=== PATIENT | female | born 1965 | race Caucasian/White ===

== ENCOUNTER 2017-03-27 05:54 | Day surgery (SDC) | payer BC ==
[~2017-03-27 05:54] MED LIST: CYCL10TA2 PO; NAPR250T6 PO
[2017-03-27] MEDS ORDERED: METF500T4 PO (06:41)
[2017-03-27] MEDS ORDERED: LOSA100T6 PO (06:42)
[2017-03-27] MEDS ORDERED: METO100T5 PO (06:42)
[2017-03-27] MEDS ORDERED: DILT120C71 PO (06:43)
[2017-03-27] MEDS ORDERED: LIDOCAINE 1% PF 2 ML VIAL. ID PRN (07:00)
[2017-03-27] MEDS ORDERED: fentaNYL PF VIAL 100 MCG/2 ML VIAL IV PRN ×2 (07:00)
[2017-03-27] MEDS ORDERED: PROCHLORPERAZINE 10 MG/2 ML VIAL. IV PRN (07:00)
[2017-03-27] MEDS ORDERED: SCOPOLAMINE 1.5MG PATCH. TD SCH (07:00)
[2017-03-27] MEDS ORDERED: HYDROmorphone 2 MG/ML VIAL IV PRN (07:00)
[2017-03-27] MEDS ORDERED: MORPHINE SULFATE 2 MG/ML DISP.SYRIN. IV PRN (07:00)
[2017-03-27] MEDS ORDERED: ONDANSETRON PF 4 MG/2 ML VIAL. IV PRN (07:00)
[2017-03-27] MEDS ORDERED: IV RINGERS,LACTATED 1000ML 1,000 ML IV SCH (07:00)
[2017-03-27] MEDS ORDERED: FERRIC SUBSULFATE 8 ML SOL.W.APPL TP ONE (07:02)
[2017-03-27] MEDS ORDERED: LIDOCAINE 2%/EPI 1:100,000 20 ML VIAL. ONE ×2 (07:02→07:31)
[2017-03-27] MEDS ORDERED: SEVOFLURANE 61 TO 120 MINUTES. IH ONE (07:30)
[2017-03-27] MEDS ORDERED: fentaNYL PF VIAL 100 MCG/2 ML VIAL ONE (07:31)
[2017-03-27] MEDS ORDERED: PROPOFOL 20 ML IV ONE (07:31)
[2017-03-27] MEDS ORDERED: MIDAZOLAM HCL/PF 2 MG/2 ML VIAL. ONE (07:31)
[2017-03-27] MEDS ORDERED: ONDANSETRON PF 4 MG/2 ML VIAL. ONE (07:31)
[2017-03-27] MEDS ORDERED: DEXAMETHASONE SOD PHOS 20 MG/5 ML VIAL. ONE (07:31)
[2017-03-27] MEDS ORDERED: LIDOCAINE 2% PF Vial for OR 5 ML VIAL. ONE (07:31)
--- NOTE | 2017-03-27 08:52 | PDOC ---
BRIEF OPERATIVE NOTE Date: Mar 27, 2017 Pre-Op Diagnosis cervical dysplasia Post-Op Diagnosis Same Procedure Performed Cervical cone biopsy Surgeon Dr. Grande Anesthesia Type: General Blood Loss 10 ml Specimens Obtained cervical biopsy Findings cervical dysplasia Complications none Operative Note see dictation MERCEDEZ GRANDE Jr, MD Mar 27, 2017 08:52
--- NOTE | 2017-03-27 08:53 | DISCH ---
DISCHARGE INSTRUCTIONS Condition on Discharge Condition on Discharge: Stable Activity After Discharge Activity Instructions for Disc: Activity as tolerated Lifting Instructions after Dis: No heavy lifting Driving Instructions after Dis: Do not drive today Diet after Discharge Diet after Discharge: Regular Contacting the [facility] after DC Call your doctor for: Concerns you may have Follow-Up Follow up with: Dr. Grande in 2 weeks. MERCEDEZ GRANDE Jr, MD Mar 27, 2017 08:53
[2017-03-27] MEDS ORDERED: KETOROLAC 30 MG/ML INJ. ONE (08:54)
--- NOTE | 2017-03-27 09:08 | OP ---
DATE OF SURGERY: PREOPERATIVE DIAGNOSIS: Cervical dysplasia. POSTOPERATIVE DIAGNOSIS: Cervical dysplasia. PROCEDURE: Cervical cone biopsy. SURGEON: Harley Grande MD ANESTHESIA: GETA. ESTIMATED BLOOD LOSS: 10 mL. COMPLICATIONS: None. SUMMARY: A 51-year-old female with cervical dysplasia, requiring cervical cone biopsy. The patient was counseled on risks, benefits and expectations and voiced clear understanding to proceed. DESCRIPTION OF PROCEDURE: The patient was taken to surgery suite and placed in dorsal lithotomy position. She was prepped with Betadine solution and draped in a sterile fashion. After adequate anesthesia, a bivalve speculum and curved [place] was placed. The cervix was grasped with single tooth tenaculum, 2-0 Vicryl sutures were placed in the 3 o'clock and 9 o'clock position for stabilization of the cervix. Cone biopsy was performed with angled blade, removing the anterior and posterior lip of the cervix. The remaining cervical tissue was cauterized with Bovie cautery. Monsel solution was placed for better hemostasis. The curved [place] and bivalve speculum was removed. The patient tolerated the procedure well and was taken to recovery room in stable condition. Sponge and needle counts correct x 3. HARLEY GRANDE MD DR: AMY/lauren JOB#: [id number] / [id number]
[2017-03-27] MEDS ORDERED: OXYC-323 PO (09:23)
[2017-03-27] MEDS ORDERED: oxyCODONE/APAP 5/325 1 TAB TABLET PO PRN (09:30)
[2017-03-27 09:52] VITALS: BP 137/67
== END 2017-03-27 10:35 | disposition home or self-care (01) ==
LOC: SURG 05:54
PROVIDERS: ATTEND Obstetrics & Gynecology
DX: N87.9 Dysplasia of cervix uteri, unspecified (principal); I10 Essential (primary) hypertension; E11.9 Type 2 diabetes mellitus without complications; Z90.49 Acquired absence of other specified parts of digestive tract; Z98.890 Other specified postprocedural states; Z87.39 Personal history of other diseases of the musculoskeletal system and connective tissue; Z86.39 Personal history of other endocrine, nutritional and metabolic disease; Z72.0 Tobacco use
CPT/HCPCS: 57520; 82962; J1100; J1885; J2250; J2405; J2704; J3010; J3490; J2001